=== PATIENT | female | born 1960 | race Hispanic/Latino ===

== ENCOUNTER → 2022-02-14 | Outpatient (CLI) | payer BC, OTHER | END | disposition home or self-care (01) | LOC: RAH 09:43 | PROVIDERS: ATTEND Internal Medicine Gastroenterology | DX: R10.13 Epigastric pain (principal) | CPT/HCPCS: 74240 ==

== ENCOUNTER → 2022-02-19 | Outpatient (CLI) | payer BC, OTHER ==
[~2022-02-19] MED LIST: IOHEXOL 350 MG/ML 100ML INFUS..BTL IV ONE
== END | disposition home or self-care (01) ==
LOC: RAH 09:22
PROVIDERS: ATTEND Student in an Organized Health Care Education/Training Program
DX: R07.9 Chest pain, unspecified (principal)
CPT/HCPCS: 75574; Q9967

== ENCOUNTER 2023-03-21 08:44 | Emergency (ER) | payer OTHER ==
[~2023-03-21] VITALS: Ht 157.5 cm; Wt 105.7 kg
[2023-03-21 09:05] LABS: MEAN CORPUSCULAR HEMOGLOBIN 28.8 pg (27.0-33.0); MEAN CORPUSCULAR HGB CONC 31.1 g/dL (32.0-36.0); MEAN CORPUSCULAR VOLUME 92.5 fL (79-99); RED BLOOD CELL COUNT(AUTO) 3.89 MIL/uL (4.00-5.50); WHITE BLOOD COUNT (AUTO) 4.5 K/uL (4.8-10.8)
[2023-03-21 09:15] LABS: CREATININE 0.9 mg/dL (0.5-1.5); MAGNESIUM 1.9 mg/dL (1.80-2.40)
[2023-03-21] MEDS ORDERED: BENZONATATE 100 MG CAPSULE PO ONE (09:30)
[2023-03-21] MEDS ORDERED: HYDROXYZINE 25 MG TABLET PO ONE (09:30)
[2023-03-21] MEDS ORDERED: ALBUTEROL 0.083% 2.5 MG/3 ML INH IH ONE (09:30)
[2023-03-21] MEDS ORDERED: ASPIRIN 325MG TAB PO ONE (09:30)
[2023-03-21 09:37] LABS: INFLUENZA TYPE A Negative For Type A (NEGATIVE); INFLUENZA TYPE B Negative For Type B (NEGATIVE)
[2023-03-21 09:38] LABS: COVID19 (SARS ANTIGEN RAPID) PRESUMPTIVE NEGATIVE (NEGATIVE)
[2023-03-21 09:45] VITALS: PULSE 56; RESP 18
[2023-03-21] MEDS ORDERED: ALBUHFA IH (12:59)
[2023-03-21] MEDS ORDERED: BENZ-39 PO (12:59)
[2023-03-21 13:12] VITALS: BP 139/60; PULSE 60; RESP 18; O2SAT 98
== END 2023-03-21 13:20 | disposition home or self-care (01) ==
LOC: EDH 08:44
DX: J20.8 Acute bronchitis due to other specified organisms (principal); I10 Essential (primary) hypertension; E11.9 Type 2 diabetes mellitus without complications; E78.00 Pure hypercholesterolemia, unspecified; Z20.822 Contact with and (suspected) exposure to COVID-19; Z98.890 Other specified postprocedural states
CPT/HCPCS: 36415; 71045; 80048; 83735; 83880; 84443; 84484; 85027; 87426; 87804; 93005; 94640